=== PATIENT | male | born 1960 ===

== ENCOUNTER → 2024-02-07 06:29 | Day surgery (SDC) | payer BC, SELFPAY | LOC: GI 06:29 | PROVIDERS: ATTENDING PHYSICIAN Internal Medicine Gastroenterology | DX: Z12.11 Encounter for screening for malignant neoplasm of colon (principal); K57.30 Diverticulosis of large intestine without perforation or abscess without bleeding; K64.8 Other hemorrhoids; K22.710 Barrett's esophagus with low grade dysplasia; K44.9 Diaphragmatic hernia without obstruction or gangrene | CPT/HCPCS: 43239; G0121; 88305; 88342 ==

== ENCOUNTER 2025-02-05 06:25 | Day surgery (SDC) | payer BC, SELFPAY | END 2025-02-05 14:05 | disposition home or self-care (01) | LOC: GI 06:25 | PROVIDERS: ATTENDING PHYSICIAN Internal Medicine Gastroenterology | DX: K44.9 Diaphragmatic hernia without obstruction or gangrene (principal); K31.7 Polyp of stomach and duodenum; K22.70 Barrett's esophagus without dysplasia; K22.710 Barrett's esophagus with low grade dysplasia | CPT/HCPCS: 43239; 88305; 88342 ==